=== PATIENT | female | born 1985 | race Hispanic/Latino ===

== ENCOUNTER 2016-11-30 18:44 | Emergency (ER) | payer OTHER ==
[2016-11-30 19:02] VITALS: BP 130/77; RESP 21; TEMP 97.8; O2SAT 100
--- NOTE | 2016-11-30 20:20 | ED PDOC ---
HPI: Chest Pain Time Seen by Provider: 11/30/16 19:08 Chief Complaint (Nursing): Palpitations Chief Complaint (Provider): Palpitations History Per: Patient History/Exam Limitations: no limitations Onset/Duration Of Symptoms: Hrs (this afternoon) Current Symptoms Are (Timing): Still Present Severity: Moderate Quality: Tightness. denies: "Pain" Associated Symptoms: Other (diarrhea, constipation, generealized weakness; denies vomiting, dizziness). denies: Nausea, Syncope Additional Complaint(s): Trini Blackwood is a 31 year old female, with a past medical history of hypokalemia and irritable bowel syndrome, who presents to the emergency department for the evaluation of palpitations, inclusive of chest tightness, that the patient began experiencing earlier this afternoon. Patient reports taking two Laxatives earlier today and is worried that her potassium is low due to a history of hypokalemia. Associated diarrhea, constipation, and generalized weakness is currently present. Denies nausea, vomiting, syncope, or dizziness. PMD: Rosy Mooney Past Medical History Reviewed: Historical Data, Nursing Documentation, Vital Signs Vital Signs: Last Vital Signs Temp 97.8 F 11/30/16 18:56 Pulse 80 11/30/16 19:22 Resp 21 11/30/16 18:56 BP 130/77 11/30/16 18:56 Pulse Ox 100 11/30/16 22:00 - Medical History PMH: Denies: Chronic Kidney Disease Other PMH: Hypokalemia, Irritable Bowel Syndrome - Surgical History Surgical History: No Surg Hx - Family History Family History: States: No Known Family Hx - Social History Current smoker - smoking cessation education provided: No Ex-Smoker (has not smoked in the last 12 months): No Alcohol: None Drugs: Denies - Immunization History Hx Tetanus Toxoid Vaccination: (UTD) - Allergies Allergies/Adverse Reactions: Allergies Allergy/AdvReac Type Severity Reaction Status Date / Time morphine AdvReac ANGIOEDEMA Verified 11/30/16 19:02 Review of Systems ROS Statement: Except As Marked, All Systems Reviewed And Found Negative Cardiovascular: Positive for: Palpitations, Other (chest tightness). Negative for: Chest Pain Gastrointestinal: Positive for: Diarrhea, Constipation. Negative for: Nausea, Vomiting Neurological: Positive for: Weakness (generalized). Negative for: Dizziness, Other (syncope) Physical Exam - Reviewed Nursing Documentation Reviewed: Yes Vital Signs Reviewed: Yes - Physical Exam Appears: Positive for: Well, Non-toxic, No Acute Distress Head Exam: Positive for: ATRAUMATIC, NORMAL INSPECTION, NORMOCEPHALIC Skin: Positive for: Normal Color, Warm, Dry Eye Exam: Positive for: EOMI, Normal appearance, PERRL Cardiovascular/Chest: Positive for: Regular Rate, Rhythm. Negative for: Murmur Respiratory: Positive for: Normal Breath Sounds. Negative for: Respiratory Distress Gastrointestinal/Abdominal: Positive for: Normal Exam, Soft. Negative for: Tenderness Back: Positive for: Normal Inspection. Negative for: L CVA Tenderness, R CVA Tenderness Neurologic/Psych: Positive for: Alert, Oriented. Negative for: Motor/Sensory Deficits - Laboratory Results Result Diagrams: 11/30/16 20:15 11/30/16 20:15 - ECG ECG: Positive for: Interpreted By Me, Viewed By Me ECG Rhythm: Positive for: Normal QRS, Normal ST Segment, Sinus Rhythm. Negative for: ST/T Changes Rate: 77 O2 Sat by Pulse Oximetry: 100 (RA) Pulse Ox Interpretation: Normal Medical Decision Making Medical Decision Makin:08 Initial Impression: Palpitations Differential Diagnoses include, but are not limited to, hypokalemia and dehydration from chronic Laxative use. Initial Plan: * Electrocardiogram * Complete Blood Count * Basic Metabolic Panel * Magnesium * Phosphorous * Urine Dip * Urine * Reevaluation Scribe Attestation: Documented by Torin Dumas, acting as a scribe for Idalia Douglass MD. Provider Scribe Attestation: All medical record entries made by the Scribe were at my direction and personally dictated by me. I have reviewed the chart and agree that the record accurately reflects my personal performance of the history, physical exam, medical decision making, and the department course for this patient. I have also personally directed, reviewed, and agree with the discharge instructions and disposition. Disposition - Clinical Impression Clinical Impression: Palpitations - Patient ED Disposition Is Patient to be Admitted: No Doctor Will See Patient In The: Office Counseled Patient/Family Regarding: Studies Performed, Diagnosis, Need For Followup - Disposition Referrals: [facility] [Outside] Disposition: Routine/Home Disposition Time: 21:59 Condition: GOOD Additional Instructions: Follow up with your PCP in 2-3 days. Instructions: Palpitations (ED)
[2016-11-30 20:26] LABS: BASO # 0.1 K/uL (0.0-0.2); BASO % 0.8 % (0.0-2.0); EOS # 0.1 K/uL (0.0-0.7); HEMATOCRIT 40.9 % (34.0-47.0); LYMPH # 2.3 K/uL (1.0-4.3); LYMPH % 22.3 % (20.0-40.0); MEAN CELL VOLUME 90.4 fl (81.0-99.0); MEAN CORPUSCULAR HEMOGLOBIN 30.2 pg (27.0-31.0); MEAN CORPUSCULAR HGB CONC 33.4 g/dL (33.0-37.0); MEAN PLATELET VOLUME 9.6 fl (7.2-11.7); MONO # 0.7 K/uL (0.0-0.8); MONO % 6.8 % (0.0-10.0); NEUT # 7.2 K/uL (1.8-7.0); NEUT % 69.1 % (50.0-75.0); NRBC % 0.1 % (0.0-0.0); RED CELL DISTRIBUTION WIDTH 13.4 % (11.5-14.5); WHITE BLOOD COUNT 10.4 K/uL (4.8-10.8)
[2016-11-30 20:39] LABS: BLOOD UREA NITROGEN 8 mg/dl (7-17); CALCIUM 9.7 mg/dL (8.4-10.2); CARBON DIOXIDE 26 mmol/L (22-30); CHLORIDE 103 mmol/L (98-107); GFR AFRICAN-AMERICAN > 60; GLUCOSE,RANDOM 93 mg/dL (65-105); POTASSIUM 3.9 MMOL/L (3.6-5.0); SODIUM 140 mmol/l (132-148)
[2016-11-30 22:01] VITALS: PULSE 77
--- NOTE | 2016-12-01 16:45 | CARD ---
APPROVED REPORT EKG Measurement Heart [id number] <Conclusion> Normal sinus rhythm with sinus arrhythmia Normal ECG
== END 2016-11-30 21:40 | disposition home or self-care (01) ==
LOC: H.ER 18:44
DX: R00.2 Palpitations (principal); K58.9 Irritable bowel syndrome, unspecified; Z87.891 Personal history of nicotine dependence